=== PATIENT | male | born 1990 | race Caucasian/White ===

== ENCOUNTER 2016-12-13 12:51 | Outpatient (RCR) | payer OTHER | END 2016-12-14 10:59 | LOC: WSOH 12:51 | DX: S00.8 Superficial injury of other parts of head (principal); S00.4 Superficial injury of ear; S40.851D Superficial foreign body of right upper arm, subsequent encounter; W37.8XXD Explosion and rupture of other pressurized tire, pipe or hose, subsequent encounter; Y99.0 Civilian activity done for income or pay ==